=== PATIENT | male | born 1955 | race African-American/Black ===

== ENCOUNTER 2021-02-25 15:38 | Inpatient (IN) | payer OTHER ==
[2021-02-25] MEDS ORDERED: ONDANSETRON 4 MG/2 ML VIAL ONE (16:48)
[2021-02-25] MEDS ORDERED: NALOXONE HCL 0.4 MG/ML VIAL ONE (16:48)
[2021-02-25] MEDS ORDERED: ONDANSETRON 4 MG/2 ML VIAL IVPUSH ONE (16:49)
[2021-02-25] MEDS ORDERED: NALOXONE HCL 0.4 MG/ML VIAL IVPUSH ONE (16:49)
[2021-02-25 17:20] LABS: HEMATOCRIT 33.8 % (35.4-49); HEMOGLOBIN 10.8 GM/dL (11.7-16.9); LYMPH % 19.5 % (8-40); MCH 27.4 pg (25.7-33.7); MCHC 32.1 g/dl (32.0-35.9); MEAN CELL VOLUME 85.3 fl (80-96); MEAN PLT VOLUME 7.9 fl (7.5-11.1); MONO % 9.9 % (3.8-10.2); NEUT % 64.6 % (42.8-82.8); PLATELET COUNT 303 10^3/uL (134-434); RBC 3.96 M/mm3 (4.00-5.60); RDW 15.5 % (11.9-15.9); WHITE BLOOD COUNT 8.7 K/mm3 (4.0-10.0)
[2021-02-25 17:35] LABS: CHLORIDE 111 mmol/L (98-107); SODIUM 140 mmol/L (136-145)
[2021-02-25 17:37] LABS: ANION GAP 8 MMOL/L (8-16); BLOOD UREA NITROGEN 43.8 mg/dL (7-18); CALCIUM 8.3 mg/dL (8.5-10.1); CO2 20 mmol/L (21-32); GLUCOSE,RANDOM 85 mg/dL (74-106)
[2021-02-25 17:40] LABS: SGOT/AST 66 U/L (15-37); SGPT/ALT 39 U/L (13-61)
[2021-02-25 17:41] LABS: CREATININE 3.1 mg/dL (0.55-1.3)
[2021-02-25 17:42] LABS: BILIRUBIN,TOTAL 0.2 mg/dL (0.2-1); TOT PROT 7.3 g/dl (6.4-8.2)
[2021-02-25 17:43] LABS: ALK PHOS 73 U/L (45-117)
[2021-02-25] MEDS ORDERED: LACTATED RINGERS SOLUTION 1000 ML INFUS.BAG IV ONE (18:03)
[2021-02-25 22:25] LABS: PH,URINE 5.5 (5.0-8.0); URINE APPEARANCE Clear; URINE BILIRUBIN Negative (NEGATIVE); URINE COLOR Yellow; URINE GLUCOSE (UA) Negative (NEGATIVE); URINE KETONE Negative (NEGATIVE); URINE LEUK ESTERASE Negative (NEGATIVE); URINE NITRITE Negative (NEGATIVE); URINE PROTEIN 2+ (NEGATIVE); URINE UROBILINOGEN 0.2 mg/dL (0.2-1.0)
[2021-02-25 22:31] LABS: OPIATES, URI NEGATIVE (NEGATIVE)
[2021-02-25 22:32] LABS: PHENCYCLIDINE,URINE NEGATIVE (NEGATIVE); URINE BARBITURATES NEGATIVE (NEGATIVE)
[2021-02-25 22:34] LABS: EPI CELLS 1.9 /uL (0-25.1); HYALINE CASTS 1.26 /uL (0-3.1); URINE BACTERIA 1.8 /uL (0-1359); URINE RBC 15.8 /uL (0-23.9); URINE WBC 1.9 /uL (0-25.8)
[2021-02-25 22:42] LABS: COCAINE, UR POSITIVE (NEGATIVE); METHADONE, UR POSITIVE (NEGATIVE); URINE AMPHETAMINES NEGATIVE (NEGATIVE); URINE BENZODIAZEPINES POSITIVE (NEGATIVE)
[2021-02-25 23:27] VITALS: BMI 30.4
[2021-02-26] MEDS: HEPARIN NA (PORCINE) 5,000 UNITS/ML 1ML VIAL SQ SCH ×3 (05:50→21:20)
[2021-02-26] MEDS: INSULIN SLIDING SCALE (NOVOLOG) 1 VIAL SQ SCH ×4 (06:00→21:15)
[2021-02-26 08:39] LABS: BASO % 0.8 % (0-2.0); EOS % 6.3 % (0-4.5); HEMATOCRIT 34.3 % (35.4-49); HEMOGLOBIN 10.6 GM/dL (11.7-16.9); LYMPH % 27.1 % (8-40); MCH 26.9 pg (25.7-33.7); MEAN CELL VOLUME 86.6 fl (80-96); MEAN PLT VOLUME 8.6 fl (7.5-11.1); MONO % 8.7 % (3.8-10.2); NEUT % 57.1 % (42.8-82.8); PLATELET COUNT 328 10^3/uL (134-434); RBC 3.96 M/mm3 (4.00-5.60); RDW 15.6 % (11.9-15.9)
[2021-02-26 08:44] LABS: ALBUMIN 2.7 g/dl (3.4-5.0); BLOOD UREA NITROGEN 40.2 mg/dL (7-18); CALCIUM 8.3 mg/dL (8.5-10.1); MAGNESIUM 2.1 mg/dL (1.8-2.4)
[2021-02-26 08:47] LABS: CREATININE 2.5 mg/dL (0.55-1.3)
[2021-02-26 08:48] LABS: BILIRUBIN,TOTAL 0.4 mg/dL (0.2-1); IRON SERUM 40 ug/dL (50-175); PHOSPHOROUS 3.9 mg/dL (2.5-4.9); TOT PROT 6.9 g/dl (6.4-8.2)
[2021-02-26 08:50] LABS: TOTAL IRON BINDING CAPACITY 218 ug/dL (250-450)
[2021-02-26 09:40] LABS: PLATELET ESTIMATE ADEQUATE
[2021-02-26] MEDS: AMPICILLIN NA/SULBACTAM NA 1.5 GM in SODIUM CHLORIDE 100 ML IVPB SCH ×2 (13:20→17:53)
[2021-02-26] MEDS ORDERED: AMPICILLIN NA/SULBACTAM NA 1.5 GM VIAL ONE ×2 (14:08→17:44)
[2021-02-26] MEDS ORDERED: SODIUM CHLORIDE 100 ML IVPB ONE ×2 (14:08→17:45)
[2021-02-26] MEDS: FUROSEMIDE 40 MG TABLET (FP) PO SCH (17:53)
[2021-02-27] MEDS ORDERED: SODIUM CHLORIDE 100 ML IVPB ONE ×3 (01:01→17:31)
[2021-02-27] MEDS ORDERED: AMPICILLIN NA/SULBACTAM NA 1.5 GM VIAL ONE ×3 (01:01→17:31)
[2021-02-27] MEDS: AMPICILLIN NA/SULBACTAM NA 1.5 GM in SODIUM CHLORIDE 100 ML IVPB SCH ×3 (01:09→17:53)
[2021-02-27] MEDS: HEPARIN NA (PORCINE) 5,000 UNITS/ML 1ML VIAL SQ SCH ×3 (06:21→22:47)
[2021-02-27] MEDS: INSULIN SLIDING SCALE (NOVOLOG) 1 VIAL SQ SCH ×4 (06:42→22:57)
[2021-02-27 08:00] LABS: BASO % 0.7 % (0-2.0); EOS % 5.8 % (0-4.5); HEMATOCRIT 41.3 % (35.4-49); HEMOGLOBIN 13.1 GM/dL (11.7-16.9); LYMPH % 23.9 % (8-40); MCH 27.3 pg (25.7-33.7); MCHC 31.7 g/dl (32.0-35.9); MEAN CELL VOLUME 86.2 fl (80-96); NEUT % 60.6 % (42.8-82.8); PLATELET COUNT 294 10^3/uL (134-434); RBC 4.78 M/mm3 (4.00-5.60); RDW 15.4 % (11.9-15.9); WHITE BLOOD COUNT 7.1 K/mm3 (4.0-10.0)
[2021-02-27 08:29] LABS: BLOOD UREA NITROGEN 32.5 mg/dL (7-18); CALCIUM 8.8 mg/dL (8.5-10.1); MAGNESIUM 1.8 mg/dL (1.8-2.4)
[2021-02-27 08:32] LABS: CREATININE 2.2 mg/dL (0.55-1.3); PHOSPHOROUS 3.1 mg/dL (2.5-4.9)
[2021-02-27 08:33] LABS: TOT PROT 7.6 g/dl (6.4-8.2)
[2021-02-27 08:35] LABS: BILIRUBIN,TOTAL 0.3 mg/dL (0.2-1)
[2021-02-27] MEDS: FUROSEMIDE 40 MG TABLET (FP) PO SCH (09:55)
[2021-02-27] MEDS ORDERED: INSULIN (NOVOLOG) ASPART 100 UNITS/ML 10ML VIAL ONE (12:06)
[2021-02-27] MEDS ORDERED: INSULIN (LEVEMIR) 100 UNITS/ML UNITS SQ ONE (12:07)
[2021-02-27] MEDS: amLODIPine BESYLATE 5 MG TABLET (FP) PO SCH (17:53)
[2021-02-28] MEDS ORDERED: AMPICILLIN NA/SULBACTAM NA 1.5 GM VIAL ONE ×3 (02:35→17:30)
[2021-02-28] MEDS ORDERED: SODIUM CHLORIDE 100 ML IVPB ONE ×3 (02:36→17:30)
[2021-02-28] MEDS: AMPICILLIN NA/SULBACTAM NA 1.5 GM in SODIUM CHLORIDE 100 ML IVPB SCH ×3 (02:39→17:37)
[2021-02-28] MEDS: HEPARIN NA (PORCINE) 5,000 UNITS/ML 1ML VIAL SQ SCH ×3 (06:09→21:21)
[2021-02-28] MEDS: INSULIN SLIDING SCALE (NOVOLOG) 1 VIAL SQ SCH ×4 (06:09→21:21)
[2021-02-28 07:44] LABS: BASO % 0.8 % (0-2.0); EOS % 4.5 % (0-4.5); HEMATOCRIT 37.1 % (35.4-49); HEMOGLOBIN 11.8 GM/dL (11.7-16.9); LYMPH % 27.6 % (8-40); MCH 27.1 pg (25.7-33.7); MCHC 31.9 g/dl (32.0-35.9); MEAN CELL VOLUME 84.9 fl (80-96); MEAN PLT VOLUME 9.1 fl (7.5-11.1); MONO % 8.7 % (3.8-10.2); NEUT % 58.4 % (42.8-82.8); PLATELET COUNT 309 10^3/uL (134-434); RBC 4.37 M/mm3 (4.00-5.60); WHITE BLOOD COUNT 7.3 K/mm3 (4.0-10.0)
[2021-02-28 07:47] LABS: ALBUMIN 2.6 g/dl (3.4-5.0); BLOOD UREA NITROGEN 28.2 mg/dL (7-18); CALCIUM 8.2 mg/dL (8.5-10.1); MAGNESIUM 1.6 mg/dL (1.8-2.4)
[2021-02-28 07:50] LABS: PHOSPHOROUS 2.6 mg/dL (2.5-4.9)
[2021-02-28 07:51] LABS: BILIRUBIN,TOTAL 0.3 mg/dL (0.2-1)
[2021-02-28 07:52] LABS: TOT PROT 6.6 g/dl (6.4-8.2)
[2021-02-28] MEDS ORDERED: MAGNESIUM SULF 50% (8.12 MEQ/2 ML-1 GM VIAL) IVPB ONE (08:45)
[2021-02-28] MEDS: FUROSEMIDE 40 MG TABLET (FP) PO SCH (09:05)
[2021-02-28] MEDS: amLODIPine BESYLATE 5 MG TABLET (FP) PO SCH (09:05)
[2021-02-28] MEDS ORDERED: PT OWN MED DRAWER 7, Y5N ONE (11:59)
[2021-03-01] MEDS ORDERED: AMPICILLIN NA/SULBACTAM NA 1.5 GM VIAL ONE ×2 (01:04→08:28)
[2021-03-01] MEDS ORDERED: SODIUM CHLORIDE 100 ML IVPB ONE ×2 (01:04→08:28)
[2021-03-01] MEDS: AMPICILLIN NA/SULBACTAM NA 1.5 GM in SODIUM CHLORIDE 100 ML IVPB SCH ×2 (01:10→09:10)
[2021-03-01] MEDS: HEPARIN NA (PORCINE) 5,000 UNITS/ML 1ML VIAL SQ SCH ×2 (05:50→13:54)
[2021-03-01] MEDS: INSULIN SLIDING SCALE (NOVOLOG) 1 VIAL SQ SCH ×2 (06:00→12:02)
[2021-03-01 06:52] LABS: BASO % 0.7 % (0-2.0); EOS % 4.3 % (0-4.5); HEMATOCRIT 38.8 % (35.4-49); HEMOGLOBIN 12.7 GM/dL (11.7-16.9); LYMPH % 27.2 % (8-40); MCH 27.5 pg (25.7-33.7); MCHC 32.6 g/dl (32.0-35.9); MEAN CELL VOLUME 84.2 fl (80-96); MONO % 7.3 % (3.8-10.2); NEUT % 60.5 % (42.8-82.8); PLATELET COUNT 320 10^3/uL (134-434); RBC 4.61 M/mm3 (4.00-5.60); WHITE BLOOD COUNT 8.5 K/mm3 (4.0-10.0)
[2021-03-01 07:21] LABS: ALBUMIN 2.6 g/dl (3.4-5.0); BLOOD UREA NITROGEN 26.8 mg/dL (7-18); CALCIUM 8.4 mg/dL (8.5-10.1)
[2021-03-01 07:25] LABS: PHOSPHOROUS 3.1 mg/dL (2.5-4.9)
[2021-03-01 07:28] LABS: BILIRUBIN,TOTAL 0.3 mg/dL (0.2-1); TOT PROT 6.9 g/dl (6.4-8.2)
[2021-03-01] MEDS: amLODIPine BESYLATE 5 MG TABLET (FP) PO SCH (09:10)
[2021-03-01] MEDS: FUROSEMIDE 40 MG TABLET (FP) PO SCH (09:10)
[2021-03-01 10:01] VITALS: BP 123/65; PULSE 78; TEMP 98
[2021-03-02] MEDS ORDERED: sitaGLIPtin PHOSPHATE 50 MG TABLET PO SCH (07:00)
== END 2021-03-01 15:06 | disposition home or self-care (01) | DRG 773 ==
LOC: JER 15:38 → JERBED 18:02 → J4W 22:40
PROVIDERS: ADMIT Internal Medicine; ATTEND Internal Medicine
DX: F14.288 Cocaine dependence with other cocaine-induced disorder (principal); N18.9 Chronic kidney disease, unspecified; I12.9 Hypertensive chronic kidney disease with stage 1 through stage 4 chronic kidney disease, or unspecified chronic kidney disease; F17.210 Nicotine dependence, cigarettes, uncomplicated; D63.1 Anemia in chronic kidney disease; F11.229 Opioid dependence with intoxication, unspecified; F14.229 Cocaine dependence with intoxication, unspecified; F13.288 Sedative, hypnotic or anxiolytic dependence with other sedative, hypnotic or anxiolytic-induced disorder; G92 Toxic encephalopathy; F11.288 Opioid dependence with other opioid-induced disorder; N17.9 Acute kidney failure, unspecified; E11.22 Type 2 diabetes mellitus with diabetic chronic kidney disease; E11.621 Type 2 diabetes mellitus with foot ulcer; E83.42 Hypomagnesemia; L02.611 Cutaneous abscess of right foot; L97.519 Non-pressure chronic ulcer of other part of right foot with unspecified severity
CPT/HCPCS: 36415; 70450-TC; 71045-TC-FY; 73610-TC-RT-FY; 73630-TC-RT-FY; 76775-TC; 80053; 80307; 81003; 82550; 82553; 82570; 82607; 82728; 82746; 82962; 83036; 83540; 83550; 83615; 83735; 83935; 84100; 84156; 84300; 84436; 84443; 84484; 85025; 85045; 85651; 86140; 87040; 87070; 87086; 87205; 93005; 93010; 93306-TC; 93880-TC; 93971-TC; 97116-GP; 97161-GP; 99285-25; C9803; J1644; U0003; U0005